=== PATIENT | female | born 1985 | race African-American/Black ===

== ENCOUNTER 2017-01-18 10:34 | Emergency (ER) | payer OTHER ==
[~2017-01-18] VITALS: Ht 157.5 cm; Wt 64.0 kg
[2017-01-18 10:37] VITALS: TEMP 37.1; Ht 157.5 cm; Wt 64.0 kg
[2017-01-18] MEDS ORDERED: XYLOCAINE 1%/SOD BICARB 20 ML VIAL INFIL ONE (10:44)
[2017-01-18] MEDS ORDERED: MEDR150I IM (10:54)
[2017-01-18] MEDS ORDERED: DIPHTHERIA/TETANUS/PERTUSSIS 0.5 ML SYR/VIAL IM. ONE (13:45)
[2017-01-18] MEDS ORDERED: IBUP-1428 PO (13:45)
--- NOTE | 2017-01-18 13:45 | EMERGENCY ROOM VISIT NOTE ---
ED Visit Note First contact with patient: 11:21 Chief Complaint: Cut on Bottom of RIGHT Foot History of Present Illness: This patient is a 31-year-old female who presents to the Emergency Department this morning for evaluation of their RIGHT foot laceration. Patient sustained the laceration while catching the bottom of her foot on a piece of wood on her steps. They report a moderate amount of bleeding initially. They deny any numbness or tingling into the distal extremity. They have tried nothing for the pain. Patient rates her current discomfort as a 10/ 10. Patient's Tetanus status is not currently up-to-date. Medications: Reviewed and discussed with the patient. Allergies: No known allergies. PMH: No pertinent past history. SHx: Patient is a 31-year-old female who lives locally. ROS: All pertinent positive and negative review of systems are appropriately documented in the History of Present Illness. Physical Exam: VITAL SIGNS - Vital signs and nursing notes were reviewed. GENERAL - 31-year-old female appearing her stated age who is in no acute distress. Communicates well with provider and answers questions appropriately. SKIN - There is a 3.5 cm long U-shaped flap laceration noted to the bottom of the RIGHT foot. The edges flap open with traction. No foreign bodies appreciated. Upon further examination there are no deep structures including vessel, tendon, or bony structures appreciated. There is no active bleeding noted. MUSCULOSKELETAL -full range of motion of the RIGHT foot and toes appreciated with +5/5 strength appreciated throughout. NEUROLOGIC - Spinothalamic tract was found to be intact with ability to discriminate sharp versus dull sensation at the level of hip joint down do the great toe. No sensory defects of the dorsal column were appreciated utilizing light touch for evaluation. VASCULAR - Capillary refill was brisk. ED Course: Patient was seen and evaluated by myself. Costs and benefits of performing primary wound closure versus no repair were discussed with the patient who verbalizes understanding. Verbal consent was obtained prior to performing the procedure. 3.0 cc of 1% buffered lidocaine was used to anesthetize the RIGHT foot laceration. The wound was cleansed and prepped in the typical sterile fashion utilizing normal saline and Betadine. The wound was sterilely draped. Once proper anesthetization was established, the wound was further examined and demonstrated a flap laceration as described above. A small piece of wood was easily removed. The wound was copiously irrigated with normal saline and Betadine. The wound was closed using 7 simple, 5-0 nylon sutures with the wound edges being well approximated. Patient tolerated the procedure well. No complications were met. The wound was cleansed and dressed with a Bacitracin dressing. Patient received their Adacel vaccination. Patient educated on worrisome symptoms for return visit to the Emergency Department. Patient discharged to home in good condition. Impression: RIGHT Foot Laceration Discharge Instructions: You have received 7 sutures on your RIGHT Foot. These sutures are NOT dissolvable and WILL need to be removed by a health care provider in 10-12 days. You can return to the Emergency Department or contact your Primary Care Provider to have the sutures removed. Proper wound care is essential for adequate wound healing and infection prevention. You can shower and clean the wound with soap and water. Do not scour over the wound, pat dry with a towel. Do not submerse the wound (i.e. bathe or dish wash) until the sutures have been removed. You can use an antibiotic ointment with a dressing over the wound for the next 3-4 days. After this time you may leave the wound dry and open to the air. If crust develops over the wound you can use a Q-tip to apply a 1:1 peroxide:water solution to clean the wound. Look for signs of infection of the wound including: increased pain, swelling, foul discharge, streaking, or increased temperature. If any of these are noticed you should return to the Emergency Department for further assessment and treatment. As with any laceration you may have received nerve damage to the surrounding tissues. This damage may or may not be permanent. You should keep the area covered with sunscreen for the first 6 months to 1 year when at risk for exposure to help minimize scarring. You can also use scar reducing creams or Vitamin E oil to help minimize scarring. You have been prescribed Motrin 800 mg. This is an anti-inflammatory medication used to help decrease your symptoms and improve your pain. Please take this medication as prescribed. It is best to take this medication with food. Please to not take this antibiotic with other NSAIDS including: Ibuprofen, Advil, Naproxen, Aspirin, Aleve, Celebrex, etc. For pain control, you can use the following [id number] medicines (if >12 yo): - Regular strength (325mg/tab) Tylenol (acetaminophen) 2 tabs every 4-6 hours as needed. Do not exceed 12 tablets in a 24 hour period. Avoid taking more than 4 grams (4000 mg) of Tylenol per day. This includes any other sources of acetaminophen you may take on a regular basis. Return to the emergency department if your symptoms worsen despite treatment course outlined above. Current/Historical Medications Scheduled PRN Ibuprofen (Motrin), 800 MG PO Q8H PRN for Pain Miscellaneous Medications Medroxyprogesterone Acetate (C (Depo-Provera Contraceptiv), 150 MG IM Allergies Coded Allergies: No Known Allergies (Unverified , 01/18/17) Vital Signs Date Time Temp Pulse Resp B/P Pulse Ox O2 Delivery O2 Flow Rate FiO2 01/18/17 13:46 90 20 137/91 98 Room Air 01/18/17 12:34 85 18 110/88 99 Room Air 01/18/17 10:37 37.1 91 16 126/77 98 Room Air Medications Administered Medications (Trade) Dose Ordered Sig/Luana Route Start Time Stop Time Status Last Admin Dose Admin Diphtheria/ Pertussis/Tetanus Vacc (Adacel Inj) 0.5 ml ONCE ONCE IM. 01/18/17 13:45 01/18/17 13:46 DC 01/18/17 14:00 0.5 ML Departure Information Impression Primary Impression: Foot laceration Dispostion Home / Self-Care Condition GOOD Prescriptions Ibuprofen (Motrin) 800 Mg Tab 800 MG PO Q8H Y for Pain for 7 Days, #21 TAB Prov: Anam Hooks PA-C 01/18/17 Referrals Comfort JenkinsDJhoanOJhoan (PCP) Patient Instructions ED Laceration Foot, [facility] Additional Instructions You have received 7 sutures on your RIGHT Foot. These sutures are NOT dissolvable and WILL need to be removed by a health care provider in 10-12 days. You can return to the Emergency Department or contact your Primary Care Provider to have the sutures removed. Proper wound care is essential for adequate wound healing and infection prevention. You can shower and clean the wound with soap and water. Do not scour over the wound, pat dry with a towel. Do not submerse the wound (i.e. bathe or dish wash) until the sutures have been removed. You can use an antibiotic ointment with a dressing over the wound for the next 3-4 days. After this time you may leave the wound dry and open to the air. If crust develops over the wound you can use a Q-tip to apply a 1:1 peroxide:water solution to clean the wound. Look for signs of infection of the wound including: increased pain, swelling, foul discharge, streaking, or increased temperature. If any of these are noticed you should return to the Emergency Department for further assessment and treatment. As with any laceration you may have received nerve damage to the surrounding tissues. This damage may or may not be permanent. You should keep the area covered with sunscreen for the first 6 months to 1 year when at risk for exposure to help minimize scarring. You can also use scar reducing creams or Vitamin E oil to help minimize scarring. You have been prescribed Motrin 800 mg. This is an anti-inflammatory medication used to help decrease your symptoms and improve your pain. Please take this medication as prescribed. It is best to take this medication with food. Please to not take this antibiotic with other NSAIDS including: Ibuprofen, Advil, Naproxen, Aspirin, Aleve, Celebrex, etc. For pain control, you can use the following [id number] medicines (if >12 yo): - Regular strength (325mg/tab) Tylenol (acetaminophen) 2 tabs every 4-6 hours as needed. Do not exceed 12 tablets in a 24 hour period. Avoid taking more than 4 grams (4000 mg) of Tylenol per day. This includes any other sources of acetaminophen you may take on a regular basis. Return to the emergency department if your symptoms worsen despite treatment course outlined above. Problem Qualifiers Primary Impression: Foot laceration Encounter type: initial encounter Laterality: right Qualified Codes: S91.311A - Laceration without foreign body, right foot, initial encounter
[2017-01-18 13:46] VITALS: BP 137/91; PULSE 90; O2SAT 98
== END 2017-01-18 14:02 | disposition home or self-care (01) ==
LOC: C.EDB 10:35 → C.EDD 14:02
DX: S91.311A Laceration without foreign body, right foot, initial encounter (principal); W45.8XXA Other foreign body or object entering through skin, initial encounter; Y92.019 Unspecified place in single-family (private) house as the place of occurrence of the external cause; Z23 Encounter for immunization